=== PATIENT | male | born 1990 | race Caucasian/White ===

== ENCOUNTER 2018-01-12 14:40 | Emergency (ER) | payer OTHER ==
[2018-01-12] MEDS ORDERED: HYDROCODONE/ACETAMINOPHEN 5-325 MG TABLET PO ONE (15:42)
[2018-01-12] MEDS ORDERED: LIDOCAINE 1% INJ-PF (10 MG/ML) 30 ML SDV INJ ONE (16:19)
[2018-01-12] MEDS ORDERED: BUPIVACAINE HCL 0.5 % INJ/PF 30 ML SDV INJ ONE (16:19)
--- NOTE | 2018-01-12 16:21 | RADIOLOGY REPORT (SQ) ---
EXAM DESCRIPTION: HAND LEFT 3 VIEWS COMPLETED DATE/TIME: 01/12/2018 4:04 pm REASON FOR STUDY: hit with hammer,pain COMPARISON: None. EXAM PARAMETERS: NUMBER OF VIEWS: Three views. TECHNIQUE: AP, lateral and oblique radiographic images acquired of the left hand. LIMITATIONS: None. FINDINGS: MINERALIZATION: Normal. BONES: No acute fracture or dislocation. No worrisome bone lesions. JOINTS: No effusions. SOFT TISSUES: No soft tissue swelling. No foreign body. OTHER: No other significant finding. IMPRESSION: NEGATIVE STUDY OF THE LEFT HAND. NO RADIOGRAPHIC EVIDENCE OF ACUTE INJURY. TECHNICAL DOCUMENTATION: JOB ID: [id number] [employer]- All Rights Reserved Reading location - IP/workstation name: [email or web address]
--- NOTE | 2018-01-12 16:30 | ER Document Report ---
ED Hand/Wrist Injury - General Chief Complaint: Thumb Injury Stated Complaint: WC/FINGER INJURY Time Seen by Provider: 01/12/18 15:41 Mode of Arrival: Ambulatory Information source: Patient TRAVEL OUTSIDE OF THE [place] IN LAST 30 DAYS: No - HPI Patient complains to provider of: left thumb injury Onset: Just prior to arrival Notes: Patient states that he was using a hammer to clean out some brick that head been knocked out of a wall when he accidentally hit his left thumb with his hammer. He has a laceration noted to the thumb. He denies any numbness, tingling, weakness. States that his last tetanus was within the last 3 years. Bleeding is controlled. He denies any fevers. No nausea, vomiting, diarrhea. He denies any other complaints or injuries. - Related Data Allergies/Adverse Reactions: No Known Allergies Allergy (Unverified 01/12/18 14:41) Past Medical History - Social History Smoking Status: Current Every Day Smoker Chew tobacco use (# tins/day): No Frequency of alcohol use: Heavy Drug Abuse: None Family History: Reviewed & Not Pertinent Patient has suicidal ideation: No Patient has homicidal ideation: No Renal/ Medical History: Denies: Hx Peritoneal Dialysis Past Surgical History: Reports: Hx Orthopedic Surgery - R hand Review of Systems - Review of Systems -: Yes All other systems reviewed and negative Physical Exam - Vital signs Vitals: Temp Pulse Resp BP Pulse Ox 98.5 F 87 16 155/83 H 100 01/12/18 14:46 01/12/18 14:46 01/12/18 14:46 01/12/18 14:46 01/12/18 14:46 - Notes Notes: GENERAL: alert, cooperative, nontoxic, no distress. HEAD: normocephalic, atraumatic EYES: conjunctiva pink without discharge, no external redness or swelling. EARS: no external swelling, no external redness NOSE: atraumatic, no external swelling MOUTH/THROAT: mucous membranes moist and pink NECK: soft, supple, full range of motion, no meningismus. CHEST: no distress, lungs clear and equal throughout. No wheezing, rales, rhonchi. CARDIAC: regular rate and rhythm, no murmur, normal capillary refill, normal pulses. BACK: full range of motion, no CVA tenderness. EXTREMITIES: full range of motion of all extremities. No redness, no swelling. 3 cm laceration to the end of the left thumb along the ulnar aspect of the nail. Bleeding is controlled. Normal cap refill and sensation. Full flexion and extension. No foreign bodies. No sign of tendon laceration or injury. NEURO: alert and oriented 3, no focal deficits, full range of motion of all extremities. PYSCH: appropriate mood, affect. Patient is cooperative. SKIN: pink, warm, dry, no rash. Course - Re-evaluation Re-evalutation: 01/12/18 18:00 Patient patient is nontoxic appearing with stable vitals. The patient was using a hammer to bust break out of the wall when he accidentally hit his left thumb with a hammer. He is noted to have a laceration to the ulnar side of the thumb tip. X-ray showed no acute fractures or foreign bodies. The nail is intact. Noted to have a 3 cm laceration along the side of the nail. There is no signs of infection. He is neurovascularly intact. His tetanus is up-to- date. Patient had sutures placed in the thumb. Tolerated procedure well. Sterile dressing will be applied and the patient will be discharged home. Instructed clean wound twice a day with soap and water. Apply thin layer of bacitracin. Follow-up in 12 days for suture removal. Follow-up sooner for increasing pain, fever, redness, drainage, any further concerns. The patient is noted to have elevated blood pressure during today's emergency department visit. The patient was informed of this finding. The patient was instructed that this may be related to pre-hypertension and requires further evaluation with a primary care provider. The patient has no hypertensive symptoms at this time. The patient's emergency department workup and current diagnosis were explained to the patient and or family. Follow-up instructions were provided. Medications if prescribed were discussed. Instructions for when to return to the emergency department including specific worrisome symptoms were discussed with the patient and/or family. - Vital Signs Vital signs: Temp Pulse Resp BP Pulse Ox 98.5 F 87 16 155/83 H 100 01/12/18 14:46 01/12/18 14:46 01/12/18 14:46 01/12/18 14:46 01/12/18 14:46 - Diagnostic Test Radiology reviewed: Image reviewed, Reports reviewed - Left hand x-ray without acute foreign body or fracture. Procedures - Laceration/Wound Repair Left thumb Wound length (cm): 3 Wound's Depth, Shape: Superficial, Irregular, Flap Laceration pre-procedure: Sterile PPE donned, Sterile drapes applied, Shur- Clens applied Anesthetic type: 0.5% Bupivacaine Wound explored: Clean, No foreign body removed Irrigated w/ Saline (mLs): 100 Wound Repaired With: Sutures Suture Size/Type: 5:0, Ethilon Number of Sutures: 6 Layer Closure?: No Post-procedure wound care: Sterile dressing applied Post-procedure NV exam normal: Yes Complications: No Discharge - Discharge Clinical Impression: Laceration of left thumb Qualifiers: Encounter type: initial encounter Damage to nail status: without damage Foreign body presence: without foreign body Qualified Code(s): S61.012A - Laceration without foreign body of left thumb without damage to nail, initial encounter Condition: Stable Disposition: HOME, SELF-CARE Instructions: Antibiotic Ointment Protection ([facility]), Laceration Care ([facility]) Additional Instructions: Clean wound twice a day with soap and water. Follow-up in 12 days for suture removal. Follow-up sooner for increasing pain, fever, redness, drainage, numbness, tingling, weakness, any further concerns. The medication you were prescribed today may cause drowsiness. Do not drive or operate heavy machinery while taking this medication. Your blood pressure was elevated during today's visit. Have this rechecked with your doctor. Prescriptions: Hydrocodone/Acetaminophen [Douglas 5-325 mg Tablet] 2 tab PO Q6H PRN #10 tab PRN Reason: Forms: Elevated Blood Pressure, Smoking Cessation Education Referrals: ANJEL SERRANO PA [Primary Care Provider] - Follow up as needed
[2018-01-12 18:23] VITALS: BP 138/91
== END 2018-01-12 18:20 | disposition home or self-care (01) ==
LOC: ER 14:40
DX: S61.012A Laceration without foreign body of left thumb without damage to nail, initial encounter (principal); W27.8XXA Contact with other nonpowered hand tool, initial encounter; Y93.89 Activity, other specified; Y99.0 Civilian activity done for income or pay; F17.200 Nicotine dependence, unspecified, uncomplicated; R03.0 Elevated blood-pressure reading, without diagnosis of hypertension
CPT/HCPCS: 99283; 73130; 12002; J3490 ×2